=== PATIENT | male | born 1970 | race Caucasian/White ===

== ENCOUNTER 2025-05-10 13:15 | Outpatient (AMB) | payer OTHER, SELFPAY ==
[2025-05-10 13:27] VITALS: BP 130/100; PULSE 94; RESP 15; TEMP 37.1; O2SAT 96; BMI 36.3
--- NOTE | 2025-05-10 13:27 | AM.OFFWIN_ITS ---
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 Patient states that he c racked a right upper molar approximately 1 year ago and has been trying to get into a dentist to have an extraction. Patient is currently taking amoxicillin and will follow up with his dentist on Monday for the dental extraction, however his blood pressure has been elevated and the dentist is urging him to take medication for his blood pressure. 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 Patient was previously taking clonidine for blood pressure management. Patient denies having any headaches, visual changes, lightheadedness, chest pain or shortness of breath. [facility] Medical History (Updated 05/10/25 @ 14:14 by Vita Gonzales PA-C) Colonoscopy refused HTN (hypertension) Gout Surgical History No pertinent past surgical history Family History Father Gout PVD (peripheral vascular disease) CVD (cardiovascular disease) Diabetes mellitus Brother Stroke Paternal Grandfather Gout Social History Housing: House Patient Tobacco Use Status: Former Tobacco user Tobacco use type: Cigarette Cigarettes Per Day: 4 Years Smoked: 20 years e-Cigarette/Vaping Use: Never Used Second Hand Smoke Exposure: No service: No Current occupational status: employed Current occupational exposures/hazards: No Cognitive needs: No Hearing needs: No Vision needs: No Review of Systems Const All systems reviewed & are unremarkable except as noted in HPI and below Denies chills, Denies fatigue and Denies fever(s) Eyes Reports no additional complaints, Denies blurry vision and Denies change in vision ENT Denies bleeding gums and Reports dental pain (right upper molar) Card Denies chest pain and Denies dyspnea Resp Denies cough and Denies dyspnea GI Reports no additional complaints Reports no additional complaints Skin/Breast Reports system reviewed and no additional complaints, except as documented Neuro Reports no additional complaints Psych Reports no additional complaints Endo Denies fatigue Physical Exam Vital Signs: Last Vital Signs Temp 98.7 F 05/10/25 13:27 Pulse 94 05/10/25 13:27 Resp 15 05/10/25 13:27 BP 130/100 H 05/10/25 13:27 Pulse Ox 96 05/10/25 13:27 Oxygen Delivery Method Room Air 05/10/25 13:27 BMI result Body Mass Index 36.3 Recheck BP 146/112 Const General: cooperative, comfortable, no acute distress, well developed, alert, awake, Physically active and anxious; No acute distress or lethargic Nutritional Appearance: obese Orientation/consciousness: patient oriented x3 and No lethargic Limitations: no limitations HEENT Mouth: Normal oral and palatal mucosa present, oropharynx normal, no drooling and no trismus Teeth and gingiva: abnormal dentition (Poor dentition with avulsion of the right upper molar tooth 30, 31) Throat: Yes posterior oropharynx normal Cardio Rate: regular rate Rhythm: regular rhythm Skin General skin exam: no rashes or lesions noted Neuro General: patient oriented x3 Psych Appearance: grossly normal Mental Status: mental status grossly normal Speech and movement: Normal speech and movement present Affect: Anxious affect present Thought content: Normal thought content present Assessment & Plan Assessment & Plan (1) HTN (hypertension): Comment: Patient was previously on clonidine however has not [place] with [place] [facility] Patient will be prescribed 0.1 mg of clonidine to be taken once daily for the next 2 weeks. Patient is instructed to schedule follow up appointment with his primary care provider for routine laboratories and ongoing management of his hypertension. Code(s): I10 - Essential (primary) hypertension Qualifiers: Hypertension type: unspecified Qualified Code(s): I10 - Essential (primary) hypertension Plan: Clonidine 0.1 mg daily #15; follow up with PCP as soon as possible. Medications: New clonidine HCl 0.1 mg PO DAILY 15 tabs 0RF Coding Level of Care Code Est Pt Level 3 (79390) Diagnoses Hypertension, unspecified type I10 Hypertension type: unspecified Time Spent (min) 25
== END 2025-05-10 14:08 | disposition home or self-care (01) ==
LOC: HO.HMCWIC 13:15
PROVIDERS: PCP Nurse Practitioner Family; Visit Provider Physician Assistant
DX: I10 Essential (primary) hypertension (principal)

== ENCOUNTER → 2025-05-10 13:15 | Outpatient (BNVA) | payer OTHER, SELFPAY | PROVIDERS: PCP Nurse Practitioner Family; Visit Provider Physician Assistant | DX: I10 Essential (primary) hypertension (principal) | CPT/HCPCS: 99212 ==